=== PATIENT | male | born 1950 | race Caucasian/White ===

== ENCOUNTER 2019-11-24 10:32 | Outpatient (CLI) | payer BC, SELFPAY ==
--- NOTE | 2019-11-24 10:36 | MR_ITS ---
WS: [id number] MRI RIGHT SHOULDER HISTORY: SHOULDER IMPINGEMENT SYNDROME RIGHT, SHOULDER PAIN RIGHT COMPARISON: Radiographs 10/13/2019 TECHNIQUE: Multiplanar sequences of the shoulder joint are submitted. Moderate AC joint arthropathy. Subacromial and subdeltoid bursal distention with fluid. Moderate-size d insertion site tear of the supraspinatus tendon. Tear is anterior and involves about 13 mm of the d istal tendon. There is additional marked tendinopathy in the distal 3 to 4 cm of the supraspinatus te ndon. Suspect there also may be an interstitial tear. There is an additional smaller insertion site t ear involving the infraspinatus tendon. Subscapularis tendon is intact. No significant muscle atrophy or edema. No os acromion. No labral tear. Biceps tendon is in normal position. MR/MR shoulder RT wo con* [id number] IMPRESSION: 1. Moderate-sized insertion site tear of the supraspinatus tendon with additio nal tendinopathy. 2. Small insertion site tear infraspinatus tendon. 3. No muscle atrophy or retraction. 4. Subacromial and subdeltoid bursal fluid. 5. Mild AC joint arthropathy.
== END 2019-11-24 10:33 | disposition home or self-care (01) ==
LOC: RADWPI 10:36
PROVIDERS: PCP Family Medicine; Referring Provider Family Medicine; Visit Provider Family Medicine
DX: M75.41 Impingement syndrome of right shoulder (principal); M75.101 Unspecified rotator cuff tear or rupture of right shoulder, not specified as traumatic; M25.511 Pain in right shoulder
CPT/HCPCS: 73221

== ENCOUNTER 2020-09-20 12:54 | Outpatient (CLI) | payer BC, SELFPAY ==
--- NOTE | 2020-09-20 13:05 | XR_ITS ---
WS: [id number] Chest with left rib detail, 09/20/2020 Clinical Data: CHEST PAIN, CONTUSION OF THORAX, RIB PAIN Comparison: None. Findings: The lungs show no nodules or masses The heart is normal. No pneumonia or pneumothorax is seen. There is a small left pleural effusion. No subcutaneous emphysema is noted. The patient's had an ante rior cervical disc fusion. There is an minimally displaced fracture of the posterior lateral aspect of the left ninth rib. No other rib fractures are seen. XR/XR ribs LT mn 3V w CXR1V [id number] Impression: Posterior lateral left ninth rib fracture.
== END 2020-09-20 12:55 | disposition home or self-care (01) ==
LOC: RADWPI 12:57
PROVIDERS: PCP Family Medicine; Visit Provider Family Medicine
DX: S20.20XA Contusion of thorax, unspecified, initial encounter (principal); R07.81 Pleurodynia; R07.9 Chest pain, unspecified; S22.32XA Fracture of one rib, left side, initial encounter for closed fracture; X58.XXXA Exposure to other specified factors, initial encounter
CPT/HCPCS: 71101

== ENCOUNTER 2021-04-14 15:27 | Outpatient (CLI) | payer BC, SELFPAY ==
--- NOTE | 2021-04-14 | USCV_ITS ---
Miguel A Oconnell Age: 71 Gender: M : 1950 Exam Date: 04/14/2021 15:44 Ordering Phys: Madhav Whitley DO Technologist: Elaina Garcia Exam Location: [facility] [place] Indication: Dypsnea BP: 120 / 80 HR: 59 Rhythm: Sinus Technical Quality: Fair MEASUREMENTS (Male / Female) Normal Values 2D ECHO LV Diastolic Diameter PLAX 3.1 cm 4.2 - 5.9 / 3.9 - 5.3 cm LV Systolic Diameter PLAX 2.0 cm LV Chamber Size 3.7 cm IVS Diastolic Thickness 1.6 cm 0.6 - 1.0 / 0.6 - 0.9 cm IVS Systolic Thickness 1.8 cm LVPW Diastolic Thickness 1.0 cm 0.6 - 1.0 / 0.6 - 0.9 cm LVPW Systolic Thickness 1.2 cm RV Chamber Size 2.6 cm LVOT Diameter 2.1 cm LV Ejection Fraction 2D Teich 67.8 % LV Ejection Fraction MOD 2C 72.5 % LV Ejection Fraction 2C AL 72.3 % LA Diameter 2.0 cm LA Width 1.9 cm LA Height 4.0 cm RA Width 2.9 cm RA Height 4.4 cm Aorta at Sinotubular Diameter 2.6 cm M-MODE LV Diastolic Diameter MM 4.3 cm 4.2 - 5.9 / 3.9 - 5.3 cm LV Systolic Diameter MM 3.2 cm LV Ejection Fraction MM Teich 52.2 % IVS Diastolic Thickness MM 1.0 cm 0.6 - 1.0 / 0.6 - 0.9 cm IVS Systolic Thickness MM 1.3 cm LVPW Diastolic Thickness MM 1.1 cm 0.6 - 1.0 / 0.6 - 0.9 cm LVPW Systolic Thickness MM 1.8 cm Aortic Annulus Diameter 3.6 cm LA Ao Ratio MM 0.6 MV E Point Septal Separation 0.4 cm DOPPLER AV Peak Velocity 102.0 cm/s LVOT Peak Velocity 99.0 cm/s AV Area Cont Eq vti 3.0 cm squared AV Area Cont Eq pk 3.3 cm squared MV Area PHT 3.5 cm squared Mitral E to A Ratio 1.1 MV E' Velocity 41.5 cm/s Mitral E to MV E' Ratio 7.2 Mitral E to LV E' Lateral Ratio 7.4 Mitral E to LV E' Septal Ratio 7.0 TV Peak E Velocity 46.0 cm/s Right Atrial Pressure 3.0 mmHg PV Peak Velocity 63.0 cm/s RV Acceleration Time 0.1 s RV Ejection Time 0.3 s RV AcT/ET 0.4 FINDINGS Left Ventricle Normal left ventricular cavity size. Normal left ventricular systolic function. No regional wall motion abnormalities. Left ventricular ejection fraction is estimated at 55 %. Grade II/IV diastolic dysfunction, moderately elevated filling pressures. Right Ventricle The right ventricle is normal in size and function. RVSP could not be calculated due to incomplete tricuspid regurgitation velocity profile. Right Atrium The right atrium is normal in size. Left Atrium The left atrium is normal in size. Mitral Valve Structurally normal mitral valve without significant stenosis or prolapse. There is no mitral regurgitation. Aortic Valve Structurally normal aortic valve without significant sclerosis or stenosis. There is no aortic regurgitation. Tricuspid Valve Structurally normal tricuspid valve without significant stenosis or regurgitation. Pulmonary artery systolic pressure is normal. Pulmonic Valve Structurally normal pulmonic valve without significant stenosis. There is no pulmonic regurgitation. Pericardium Normal pericardium without effusion. Aorta Normal ascending aorta dimension. CONCLUSIONS 1-Normal left ventricular cavity size. Normal left ventricular systolic function. No regional wall motion abnormalities. Left ventricular ejection fraction is estimated at 55 %. Grade II/IV diastolic dysfunction, moderately elevated filling pressures. 2-No significant valve abnormalities. 3-There is no pericardial effusion. 4-Right atrial pressure is around 5 mm of mercury. 5-There are no prior echocardiogram studies to compare. Jaren Timmons MD (Electronically Signed) Final Date: 15 April 2021 20:16 S
== END 2021-04-14 15:28 | disposition home or self-care (01) ==
LOC: RAD 15:32
PROVIDERS: PCP Family Medicine; Visit Provider Family Medicine
DX: R06.00 Dyspnea, unspecified (principal)
CPT/HCPCS: 93306

== ENCOUNTER 2021-05-24 09:34 | Outpatient (CLI) | payer BC, SELFPAY ==
--- NOTE | 2021-05-24 10:15 | USCV_ITS ---
Miguel A Oconnell Age: 71 Gender: M : 1950 Exam Date: 05/24/2021 10:16 Ordering Phys: Marco Colmenares M.D ([email or web address]) Technologist: Enedina Tanner Exam Location: [facility] [place] Indication: leg pain bilateral Risk Factors: None Previous Vascular Surgery: None RIGHT LEFT BP: 127.0 / 72.00 BP: 138.7/ 78.00 0 0 Waveform Velocity (cm/s) Velocity (cm/s) Waveform 98.5 Iliac Prox 73.1 93.7 Iliac Mid 57.1 80.4 Iliac Distal 71.0 93.7 SALOONKEEPER 98.1 94.8 SFA Prox 62.8 66.7 SFA Mid 71.7 88.0 SFA Dist 65.1 61.5 POP 65.1 65.8 ELECTRIC SHOVEL OPERATOR 61.4 35.7 DPA 50.0 1.2 REYNA 1.2 FINDINGS Right ELECTRIC SHOVEL OPERATOR- 150, RT DPA - 160 Left ELECTRIC SHOVEL OPERATOR 0 144, LT DPA - 150 Normal resting ABIs bilaterally Normal Doppler flow velocities bilaterally All diffuse plaques in the iliac and femoral arteries on both sides CONCLUSIONS Mild diffuse plaque in the iliac and femoral arteries bilaterally. No significant arterial obstruction, based on the above findings. Dr Devin Rodriguez MD [facility] (Electronically Signed) Final Date: 25 May 2021 00:26 S
== END 2021-05-24 09:35 | disposition home or self-care (01) ==
LOC: US 09:36
PROVIDERS: PCP Family Medicine; Visit Provider Internal Medicine
DX: M79.604 Pain in right leg (principal); M79.605 Pain in left leg; I70.8 Atherosclerosis of other arteries
CPT/HCPCS: 93925

== ENCOUNTER 2021-05-30 08:11 | Outpatient (CLI) | payer BC, SELFPAY ==
[2021-05-30 08:23] VITALS: BMI 24.3
--- NOTE | 2021-05-30 08:59 | PC.NURSE ---
called dr chacon after family mentioned they thought the test had been changed to a treadmil. dr chacon verbally changed order from lexiscan to a plain treadmill
--- NOTE | 2021-05-30 09:02 | ECG_ITS ---
[facility] Test Date: 2021-05-30 Pat Name: Miguel A Oconnell Department: Room: Gender: Male Director Furniture: : 1950 Requested By: Marco Colmenares Order Number: [id number] Blossom MD: Marco Colmenares M.D. Interpretive Statements NAME OF STUDY: TREADMILL STRESS TEST INDICATION: [sob] EXERCISE DATA: The patient was exercised by Trung protocol. Baseline heart rate was 57 beats per minute. Baseline blood pressure was 150/73 millimeters of mercury. Target heart rate was 128 beats per minute. Maximum heart rate achieved was 135, which was 90% of the maximum heart rate. Maximum blood pressure was 168/67 millimeters of mercury. Total exercise time was 09 minutes 35 seconds. Maximum METs achieved was 13.5, maximum VO2 was 47.3. The reason for ending the test was completion of the protocol. The patient complained of shortness of breath during the stress test, which then resolved at the end of the test. ELECTROCARDIOGRAM: BASELINE: Showed sinus rhythm, normal axis, no significant ST-T changes at the baseline noted. [] EXERCISE: At the peak exercise level, [] No significant ST-T changes suggestive of ischemia noted. [] RECOVERY: During the recovery period, heart rate dropped appropriately. No significant ST-T changes in the recovery suggestive of ischemia noted. [] CONCLUSION: 1. Exercise capacity excellent. 2. Heart rate response was appropriate. 3. Blood pressure response was appropriate. 4. Symptoms not suggestive of ischemia. 5. Stress test was not suggestive of ischemia. Electronically Signed On 06-19-2021 12:45:51 CDT by Marco Colmenares M.D. [email or web address]
[2021-05-30 09:29] VITALS: BP 132/74; PULSE 84
== END 2021-05-30 08:12 | disposition home or self-care (01) ==
LOC: CDL 08:12
PROVIDERS: PCP Family Medicine; Visit Provider Internal Medicine
DX: R06.02 Shortness of breath (principal)
CPT/HCPCS: 93017

== ENCOUNTER → 2023-01-31 08:42 | Outpatient (BNVA) | payer BC, SELFPAY | PROVIDERS: PCP Family Medicine; Visit Provider Family Medicine | DX: E78.5 Hyperlipidemia, unspecified (principal); Z00.00 Encounter for general adult medical examination without abnormal findings | CPT/HCPCS: 80053; 80061; 80193; 82607; 82652; 84443 ==

== ENCOUNTER → 2024-02-07 08:59 | Outpatient (BNVA) | payer BC, SELFPAY | PROVIDERS: PCP Family Medicine; Visit Provider Family Medicine | DX: Z00.00 Encounter for general adult medical examination without abnormal findings (principal); Z13.6 Encounter for screening for cardiovascular disorders | CPT/HCPCS: 80053; 80061 ==

== ENCOUNTER → 2025-02-10 08:24 | Outpatient (BNVA) | payer BC, SELFPAY | PROVIDERS: PCP Family Medicine; Visit Provider Family Medicine | DX: E03.9 Hypothyroidism, unspecified (principal); Z00.00 Encounter for general adult medical examination without abnormal findings | CPT/HCPCS: 80053; 80061; 82306; 82607; 84443; 85025 ==